=== PATIENT | female | born 1955 | race Caucasian/White ===

== ENCOUNTER 2020-09-28 18:09 | Emergency (ER) | payer MEDICAID, OTHER ==
[2020-09-28] MEDS ORDERED: Sodium Chloride 0.9% 10 ML Syringe FLUSH PRN (18:37)
[2020-09-28] MEDS ORDERED: Sodium Chloride 0.9% 1,000 ML IV SCH (18:45)
--- NOTE | 2020-09-28 19:48 | EDM.PDOC ---
ED HPI GENERAL MEDICAL PROBLEM - General Chief Complaint: General Stated Complaint: DIZZY Time Seen by Provider: 09/28/20 18:10 Source of Information: Reports: Patient History Limitations: Reports: No Limitations - History of Present Illness INITIAL COMMENTS - FREE TEXT/NARRATIVE: Patient presented to the ED because of weakness, dizziness and dyspnea which started @ 1330. There is no N/V/D. Denies having any fever but have chills, no cough/cold symptoms. She was diagnosed with Malignant Lymphoma in [place] sometime in 08/2020. She had several chemotherapy since then and 2 U of PRBC just recently. - Related Data Allergies Allergy/AdvReac Type Severity Reaction Status Date / Time cephalexin Allergy Rash Verified 09/28/20 18:32 Home Meds: Home Meds Acetaminophen/HYDROcodone [[place] 325-5 MG] 1 tab PO Q6HR PRN 09/28/20 [History] Aspirin 81 mg PO DAILY 09/28/20 [History] Escitalopram [Lexapro] 10 mg PO DAILY 09/28/20 [History] Melatonin 5 mg PO BEDTIME 09/28/20 [History] NIFEdipine [Procardia Xl] 90 mg PO DAILY 09/28/20 [History] Omeprazole 40 mg PO DAILY 09/28/20 [History] Ondansetron [Zofran] 8 mg PO TID PRN 09/28/20 [History] Rivaroxaban [Xarelto] 20 mg PO DAILY 09/28/20 [History] Sulfamethoxazole/Trimethoprim [Bactrim Ds Tablet] 1 tab PO ASDIRECTED 09/28/20 [History] allopurinoL [Zyloprim] 300 mg PO DAILY 09/28/20 [History] valACYclovir HCl [Valtrex] 500 mg PO DAILY 09/28/20 [History] Past Medical History Cardiovascular History: Reports: Arrhythmia [employer] AD[employer]ER History: Reports: Psychiatric History: Reports: Anxiety, Depression Hematologic History: Reports: Other (See Below) Other Hematologic History: malignant lymphoma Social & Family History - Family History Family Medical History: No Pertinent Family History - Tobacco Use Tobacco Use Status *Q: Heavy Tobacco User Years of Tobacco use: 49 Packs/Tins Daily: 0.5 - Caffeine Use Caffeine Use: Reports: Coffee - Recreational Drug Use Recreational Drug Use: Yes Drug Use in Last 12 Months: No Recreational Drug Type: Reports: Marijuana/Hashish ED ROS GENERAL - Review of Systems Review Of Systems: See Below Constitutional: Reports: Chills, Malaise, Weakness HEENT: Reports: No Symptoms Respiratory: Reports: No Symptoms Cardiovascular: Reports: No Symptoms Endocrine: Reports: No Symptoms GI/Abdominal: Reports: No Symptoms : Reports: No Symptoms Musculoskeletal: Reports: No Symptoms Skin: Reports: No Symptoms Neurological: Reports: No Symptoms Psychiatric: Reports: No Symptoms Hematologic/Lymphatic: Reports: No Symptoms ED EXAM, GENERAL - Physical Exam Exam: See Below Exam Limited By: No Limitations General Appearance: Alert, No Apparent Distress Ears: Normal External Exam, Normal [place] Nose: Normal Inspection, Normal Mucosa, No Blood Throat/Mouth: Normal Inspection, Normal Lips Head: Atraumatic, Normocephalic Neck: Normal Inspection, Supple, Non-Tender, Full Range of Motion Respiratory/Chest: No Respiratory Distress, Lungs Clear, Normal Breath Sounds, No Accessory Muscle Use, Chest Non-Tender Cardiovascular: Normal Peripheral Pulses, Regular Rate, Rhythm, No Edema, No JVD, No Murmur GI/Abdominal: Normal Bowel Sounds, Soft, Non-Tender, No Organomegaly Back Exam: Normal Inspection, Full Range of Motion Extremities: Normal Inspection, Normal Range of Motion, Non-Tender, No Pedal Edema, Normal Capillary Refill #1 Interpretation EKG Date: 09/28/20 Time: 18:58 Rhythm: NSR Rate (Beats/Min): 75 [place]: Normal QRS: Other (LAFB) ST-T: Normal QT: Normal [place]/PQ Interval: 144 Comparison: NA - No Prior EKG Course - Vital Signs Text/Narrative:: Lab/EKG/CXR result was reviewed and discussed with patient and her son S 1 L bolus Last Recorded V/S: Last Vital Signs Temp 36.8 C 09/28/20 18:10 Pulse 88 09/28/20 18:10 Resp 20 09/28/20 18:10 BP 109/68 09/28/20 18:10 Pulse Ox 97 09/28/20 18:10 - Orders/Labs/Meds Orders: Active Orders 24 hr Category Date Time Status Chest 1V Frontal [CR] Stat Exams 09/28/20 18:37 Taken Saline Lock Insert [OM.PC] Routine Oth 09/28/20 18:37 Ordered EKG 12 Lead [EK] Routine Ther 09/28/20 18:37 Ordered Labs: Laboratory Tests 09/28/20 09/28/20 09/28/20 Range/Units 18:50 18:50 18:50 WBC 3.0 (3.0-10.3) x10-3/uL RBC 2.32 L (3.60-5.20) x10(6)uL Hgb 8.2 L (11.4-15.5) g/dL Hct 23.4 L (34.2-48.2) % MCV 100.9 H (76.7-100.5) fL MCH 35.2 H (23.9-33.9) pg MCHC 34.9 H (31.9-34.8) g/dL RDW 22.8 H (12.3-16.5) % Plt Count 45 L (151-488) x10(3)uL MPV 9.5 (7.1-12.4) fL Neut % (Auto) 75.4 (30.8-76.2) % Lymph % (Auto) 16.8 L (18.4-52.1) % [place] % (Auto) 7.5 (4.4-15.7) % Eos % (Auto) 0.1 L (0.6-8.1) % Baso % (Auto) 0.2 (0.2-1.5) % Neut # (Auto) 2.3 (1.5-6.3) x10-3/uL Lymph # (Auto) 0.5 L (1.0-4.4) x10-3/uL [place] # (Auto) 0.2 L (0.3-1.0) x10-3/uL Eos # (Auto) 0.0 (0.0-0.8) x10-3/uL Baso # (Auto) 0.0 (0.0-0.1) x10-3/uL Sodium 133 L (135-145) mmol/L Potassium 3.8 (3.5-5.3) mmol/L Chloride 96 L (100-110) mmol/L Carbon Dioxide 27 (21-32) mmol/L BUN 18 (7-18) mg/dL Creatinine 0.7 (0.55-1.02) mg/dL Est Cr Clr Drug Dosing 61.27 mL/min Estimated GFR (MDRD) > 60 (>60) BUN/Creatinine Ratio 25.7 H (9-20) Glucose 112 (80-116) mg/dL Calcium 9.4 (8.6-10.2) mg/dL Total Bilirubin 1.1 (0.1-1.3) mg/dL AST 11 (5-25) IU/L ALT 15 (12-36) U/L Alkaline Phosphatase 91 (56-112) IU/L Troponin I 6.9 (4.0-60.3) pg/mL NT-Pro-B Natriuret Pep 222 H (<=125) pg/mL Total Protein 7.7 (6.0-8.0) g/dL Albumin 3.3 (3.2-4.6) g/dL Globulin 4.4 g/dL Albumin/Globulin Ratio 0.8 Meds: Medications Discontinued Medications Generic Name Dose Route Start Last Admin Trade Name Freq PRN Reason Stop Dose Admin Sodium Chloride 1,000 mls @ 999 mls/hr 09/28/20 18:45 09/28/20 18:50 Normal Saline IV 999 mls/hr ASDIRECTED FENG Administration Sodium Chloride 10 ml 09/28/20 18:37 Sodium Chloride 0.9% 10 Ml Syringe FLUSH ASDIRECTED PRN Keep Vein Open Departure - Departure Time of Disposition: 20:30 Disposition: Home, Self-Care 01 Condition: Good Clinical Impression: Anemia, Dehydration, Malignant lymphoma - Discharge Information Instructions: Dehydration, Adult, [id number] Referrals: Ceasar Peterson DO [Primary Care Provider] - Forms: ED Department Discharge Additional Instructions: Please read discharge instructions on dehydration and lymphoma Drink 2-3 liters of water daily to prevent dehydration Follow up as needed Sepsis Event Note (ED) - Evaluation Sepsis Screening Result: No Definite Risk - Focused Exam Vital Signs: Vital Signs Temp Pulse Resp BP Pulse Ox 09/28/20 18:10 36.8 C 88 20 109/68 97 - My Orders Last 24 Hours: My Active Orders 09/28/20 18:37 Chest 1V Frontal [CR] Stat Saline Lock Insert [OM.PC] Routine EKG 12 Lead [EK] Routine - Assessment/Plan Last 24 Hours: My Active Orders 09/28/20 18:37 Chest 1V Frontal [CR] Stat Saline Lock Insert [OM.PC] Routine EKG 12 Lead [EK] Routine
== END 2020-09-28 20:27 | disposition home or self-care (01) ==
LOC: FB.ED 18:09
DX: E86.0 Dehydration (principal); C85.90 Non-Hodgkin lymphoma, unspecified, unspecified site; D64.9 Anemia, unspecified; I44.4 Left anterior fascicular block; Z88.1 Allergy status to other antibiotic agents; Z72.0 Tobacco use; Z79.82 Long term (current) use of aspirin; Z79.01 Long term (current) use of anticoagulants; Z79.899 Other long term (current) drug therapy
CPT/HCPCS: 36415; 71045; 80053; 83880; 84484; 85025; 93005; 99285; J7030

== ENCOUNTER 2020-10-07 17:28 | Observation (INO) | payer MEDICAID, OTHER ==
--- NOTE | 2020-10-07 18:12 | EDM.PDOC ---
ED HPI GENERAL MEDICAL PROBLEM - General Chief Complaint: General Stated Complaint: WEAKNESS,PALE,EYES DIALATED Time Seen by Provider: 10/07/20 17:45 Source of Information: Reports: Patient, Family History Limitations: Reports: No Limitations - History of Present Illness INITIAL COMMENTS - FREE TEXT/NARRATIVE: c/o fatigue x 2d pt thinks she is anemic, last given 2u PRCB 8d ago per pt, had hgb 8.2 here 9d ago (wbc 3.0 and plt 45) dx lymphoma end of July, living in [facility] at the time pt does not know where lymphoma is located ("in my blood") or type of lymphoma ("malignant") has had transfusion 3x 1st cycle chemo end of August in [place], was supposed to go back to [place] 2d for 2nd cycle of chemo but was tired and did not have a way to get there was supposed have CBC drawn today but has spent the entire day in bed and slept through her 9a appointment renting a house in [place] where she is staying, son is with her wearing his work uniform no pain c/o, not eat and drink today SH: current smoker - Related Data Allergies Allergy/AdvReac Type Severity Reaction Status Date / Time cephalexin Allergy Rash Verified 10/07/20 19:49 Home Meds: Home Meds Acetaminophen/HYDROcodone [[place] 325-5 MG] 1 tab PO Q6HR PRN 09/28/20 [History] Aspirin 81 mg PO DAILY 09/28/20 [History] Escitalopram [Lexapro] 10 mg PO DAILY 09/28/20 [History] Melatonin 5 mg PO BEDTIME 09/28/20 [History] NIFEdipine [Procardia Xl] 90 mg PO DAILY 09/28/20 [History] Omeprazole 40 mg PO DAILY 09/28/20 [History] Ondansetron [Zofran] 8 mg PO TID PRN 09/28/20 [History] Rivaroxaban [Xarelto] 20 mg PO DAILY 09/28/20 [History] Sulfamethoxazole/Trimethoprim [Bactrim Ds Tablet] 1 tab PO ASDIRECTED 09/28/20 [History] allopurinoL [Zyloprim] 300 mg PO DAILY 09/28/20 [History] valACYclovir HCl [Valtrex] 500 mg PO DAILY 09/28/20 [History] Past Medical History 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: Psychiatric History: Reports: Anxiety, Depression Hematologic History: Reports: Other (See Below) Other Hematologic History: malignant lymphoma Social & Family History - Family History Family Medical History: No Pertinent Family History - Caffeine Use Caffeine Use: Reports: Coffee ED ROS GENERAL - Review of Systems Review Of Systems: See Below Constitutional: Reports: No Symptoms HEENT: Reports: No Symptoms Respiratory: Reports: No Symptoms Cardiovascular: Reports: No Symptoms Endocrine: Reports: No Symptoms GI/Abdominal: Reports: No Symptoms : Reports: No Symptoms Musculoskeletal: Reports: No Symptoms Skin: Reports: No Symptoms Neurological: Reports: Weakness Psychiatric: Reports: No Symptoms Hematologic/Lymphatic: Reports: No Symptoms Immunologic: Reports: No Symptoms ED EXAM, GENERAL - Physical Exam Exam: See Below Exam Limited By: No Limitations General Appearance: Alert, Other (lying supine on bed, alert, conversant, answers questions readily) Ears: Hearing Grossly Normal Nose: Normal Inspection, Normal Mucosa, No Blood Throat/Mouth: Normal Inspection, Normal Lips, Normal Voice, No Airway Compromise Head: Atraumatic, Normocephalic Neck: Normal Inspection, Supple, Non-Tender, Full Range of Motion. No: Lymphadenopathy (R), Lymphadenopathy (L) Respiratory/Chest: No Respiratory Distress, Lungs Clear, Normal Breath Sounds, Chest Non-Tender Cardiovascular: Regular Rate, Rhythm, No Edema, No Murmur GI/Abdominal: Soft, Non-Tender, No Distention Back Exam: Normal Inspection, Full Range of Motion. No: CVA Tenderness (R), CVA Tenderness (L) Extremities: Normal Inspection, Non-Tender, No Pedal Edema Neurological: Alert, Oriented, CN II-XII Intact, Normal Cognition, No Motor/Sensory Deficits Psychiatric: Normal Affect, Normal Mood Skin Exam: Warm, Dry, Intact, Normal Color, No Rash Lymphatic: No Adenopathy Course - Vital Signs Last Recorded V/S: Last Vital Signs Temp 37.0 C 10/07/20 17:41 Pulse 77 10/07/20 17:41 Resp 16 10/07/20 17:41 BP 91/47 L 10/07/20 17:41 Pulse Ox - Orders/Labs/Meds Orders: Active Orders 24 hr Category Date Time Status RED BLOOD CELLS LP [BBK] Stat Lab 10/07/20 19:18 Ordered TYPE AND SCREEN [BBK] Stat Lab 10/07/20 19:18 Ordered UA W/MICROSCOPIC [URIN] Stat Lab 10/07/20 18:55 Ordered Sodium Chloride 0.9% [Normal Saline] 250 ml Med 10/07/20 19:30 Active IV ASDIRECTED Transfuse RBC [Transfuse Red Blood Cells] [COMM] Stat Oth 10/07/20 19:18 Ordered Medication Orders Allopurinol (Allopurinol 300 Mg Tab) 300 mg PO DAILY FENG Escitalopram Oxalate (Escitalopram 10 Mg Tab) 10 mg PO DAILY FENG Sodium Chloride (Normal Saline) 250 mls @ 100 mls/hr IV ASDIRECTED FENG Magnesium Hydroxide (Magnesium Hydroxide 400 Mg/5 Ml Susp 30 Ml Cup) 30 ml PO Q12H PRN PRN Reason: Constipation Non-Formulary Medication (Melatonin [Melatonin]) 5 mg PO BEDTIME FENG Non-Formulary Medication (Omeprazole [Omeprazole]) 40 mg PO DAILY FENG Trimethoprim/Sulfamethoxazole (Sulfamethoxazole/Trimethoprim 800-160 Mg Tab) 1 tab PO ASDIRECTED FENG Valacyclovir HCl (Valacyclovir 500 Mg Tab) 500 mg PO DAILY FENG Zolpidem Tartrate (Zolpidem 5 Mg Tab) 5 mg PO BEDTIME PRN PRN Reason: Sleep Labs: Laboratory Tests 10/07/20 10/07/20 Range/Units 19:05 19:05 WBC 1.6 L* (3.0-10.3) x10-3/uL RBC 1.26 L (3.60-5.20) x10(6)uL Hgb 4.3 L* D (11.4-15.5) g/dL Hct 12.0 L* D (34.2-48.2) % MCV 95.8 (76.7-100.5) fL MCH 34.2 H (23.9-33.9) pg MCHC 35.6 H (31.9-34.8) g/dL RDW 22.0 H (12.3-16.5) % Plt Count 34 L* (151-488) x10(3)uL MPV 8.5 (7.1-12.4) fL Add Manual Diff Yes Neutrophils % (Manual) 80 (46-82) % Lymphocytes % (Manual) 20 (13-37) % Plt Morphology Comment See note Polychromasia Few Sodium 138 (135-145) mmol/L Potassium 3.6 (3.5-5.3) mmol/L Chloride 99 L (100-110) mmol/L Carbon Dioxide 28 (21-32) mmol/L BUN 13 (7-18) mg/dL Creatinine 0.6 (0.55-1.02) mg/dL Est Cr Clr Drug Dosing 71.48 mL/min Estimated GFR (MDRD) > 60 (>60) BUN/Creatinine Ratio 21.7 H (9-20) Glucose 94 (80-116) mg/dL Calcium 8.9 (8.6-10.2) mg/dL Total Bilirubin 0.7 (0.1-1.3) mg/dL AST 9 D (5-25) IU/L ALT 16 (12-36) U/L Alkaline Phosphatase 79 (56-112) IU/L Total Protein 7.2 (6.0-8.0) g/dL Albumin 3.0 L (3.2-4.6) g/dL Globulin 4.2 g/dL Albumin/Globulin Ratio 0.7 Meds: Medications Generic Name Dose Route Start Last Admin Trade Name Freq PRN Reason Stop Dose Admin Allopurinol 300 mg 10/08/20 09:00 Allopurinol 300 Mg Tab PO DAILY [facility] Escitalopram Oxalate 10 mg 10/08/20 09:00 Escitalopram 10 Mg Tab PO DAILY [facility] Sodium Chloride 250 mls @ 100 mls/hr 10/07/20 19:30 Normal Saline IV ASDIRECTED [facility] Magnesium Hydroxide 30 ml 10/07/20 19:55 Magnesium Hydroxide 400 Mg/5 Ml Susp 30 Ml Cup PO Q12H PRN Constipation Non-Formulary Medication 5 mg 10/07/20 21:00 Melatonin [Melatonin] PO BEDTIME FENG Non-Formulary Medication 40 mg 10/08/20 09:00 Omeprazole [Omeprazole] PO DAILY [facility] Trimethoprim/Sulfamethoxazole 1 tab 10/07/20 20:00 Sulfamethoxazole/Trimethoprim 800-160 Mg Tab PO ASDIRECTED [facility] Valacyclovir HCl 500 mg 10/08/20 09:00 Valacyclovir 500 Mg Tab PO DAILY [facility] Zolpidem Tartrate 5 mg 10/07/20 19:55 Zolpidem 5 Mg Tab PO BEDTIME PRN Sleep - Re-Assessments/Exams Free Text/Narrative Re-Assessment/Exam: 10/07/20 19:24 hgb 4.3, will admit to obs bed and transfuse 2u PRBC, no fever, no clinical evidence of infection Departure - Departure Time of Disposition: 19:23 Disposition: Refer to Observation Condition: Fair Clinical Impression: Pancytopenia, Profound anemia, Lymphoma - Discharge Information *PRESCRIPTION DRUG MONITORING PROGRAM REVIEWED*: Not Applicable *COPY OF PRESCRIPTION DRUG MONITORING REPORT IN PATIENT ANAND: Not Applicable Sepsis Event Note (ED) - Evaluation Sepsis Screening Result: No Definite Risk - Focused Exam Vital Signs: Vital Signs Temp Pulse Resp BP 10/07/20 17:41 37.0 C 77 16 91/47 L - My Orders Last 24 Hours: My Active Orders 10/07/20 18:55 UA W/MICROSCOPIC [URIN] Stat 10/07/20 19:18 RED BLOOD CELLS LP [BBK] Stat TYPE AND SCREEN [BBK] Stat Transfuse RBC [Transfuse Red Blood Cells] [COMM] Stat 10/07/20 19:30 Sodium Chloride 0.9% [Normal Saline] 250 ml IV ASDIRECTED - Assessment/Plan Last 24 Hours: My Active Orders 10/07/20 18:55 UA W/MICROSCOPIC [URIN] Stat 10/07/20 19:18 RED BLOOD CELLS LP [BBK] Stat TYPE AND SCREEN [BBK] Stat Transfuse RBC [Transfuse Red Blood Cells] [COMM] Stat 10/07/20 19:30 Sodium Chloride 0.9% [Normal Saline] 250 ml IV ASDIRECTED
[2020-10-07] MEDS ORDERED: Magnesium Hydroxide 400 MG/5 ML Susp 30 ML Cup PO PRN (19:55)
[2020-10-07] MEDS: Sodium Chloride 0.9% 250 ML IV SCH ×2 (20:45→23:11)
[2020-10-07] MEDS ORDERED: Non-Formulary Medication 1 Each (Melatonin [Melatonin] 5 MG Tablet) PO SCH (21:00)
[2020-10-08] MEDS: Acetaminophen 325 MG Tab PO PRN ×2 (02:43→21:43)
[2020-10-08] MEDS: Zolpidem 5 MG Tab PO PRN ×2 (02:45→21:44)
[2020-10-08] MEDS: Sodium Chloride 0.9% 250 ML IV SCH (03:21)
[2020-10-08] MEDS ORDERED: LORazepam 1 MG Tab PO ONE (04:37)
[2020-10-08] MEDS ORDERED: TRIMETHOPRIM PO SCH ×2 (09:00→21:00)
[2020-10-08] MEDS ORDERED: SULFAMETHOXAZOLE PO SCH ×2 (09:00→21:00)
[2020-10-08] MEDS: Escitalopram 10 MG Tab *PTOM PO SCH (09:58)
[2020-10-08] MEDS: VALACYCLOVIR 500 MG PO SCH (09:59)
[2020-10-08] MEDS: OMEPRAZOLE 20 MG PO SCH (09:59)
[2020-10-08] MEDS: Allopurinol 300 MG Tab *PTOM PO SCH (10:01)
--- NOTE | 2020-10-08 14:16 | PCM.HP.2 ---
H&P History of Present Illness - General Date of Service: 10/08/20 Admit Problem/Dx: Admission Diagnosis/Problem Admission Diagnosis/Problem Anemia Source of Information: Patient, Old Records, Provider - History of Present Illness Initial Comments - Free Text/Narative: Merry presented to [facility] last night for 2 day history of fatigue but denies any shortness of breath or chest pain. She felt she was anemic. She denies any nosebleeds, bleeding gums, blood in urine or stools. She has been b ruising easily. Denies any swollen lymph nodes, fevers, chills, nausea or vomiting. No diarrhea or constipation, or pain. She did not eat or drink today because she was too tired to go downstairs(14 stairs to go down and up). 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 She is due for 2nd cycle of chemo on 10/12 & 10/13. She missed lab appointment yesterday due to fatigue for repeat CBC. She moved here from [place], [place] to be with her son. She turns 65 next Sunday, has paperwork to apply for Medicare but has not been able to do it. Previous transfusions x 3. She sees Dr Morales at [facility]. - Related Data Allergies/Adverse Reactions: Allergies Allergy/AdvReac Type Severity Reaction Status Date / Time cephalexin Allergy Rash Verified 10/07/20 19:49 Home Medications: Home Meds Aspirin 81 mg PO DAILY 09/28/20 [History] Escitalopram [Lexapro] 10 mg PO DAILY 09/28/20 [History] Melatonin 5 mg PO BEDTIME 09/28/20 [History] NIFEdipine [Procardia Xl] 90 mg PO DAILY 09/28/20 [History] Omeprazole 40 mg PO DAILY 09/28/20 [History] Ondansetron [Zofran] 8 mg PO TID PRN 09/28/20 [History] Rivaroxaban [Xarelto] 20 mg PO DAILY 09/28/20 [History] Sulfamethoxazole/Trimethoprim [Bactrim Ds Tablet] 1 tab PO MOWEFR 09/28/20 [Hist ory] allopurinoL [Zyloprim] 300 mg PO DAILY 09/28/20 [History] valACYclovir HCl [Valtrex] 500 mg PO DAILY 09/28/20 [History] Hydrocodone/Acetaminophen [Hydrocodon-Acetaminophn 10-325] 1 tab PO Q6H PRN 10/08/20 [History] Prochlorperazine Maleate [Compazine] 10 mg PO QID PRN 10/08/20 [History] Past Medical History HEENT History: Reports: Other (See Below) Other HEENT History: Reading glasses Cardiovascular History: Reports: Arrhythmia, Blood Clots/VTE/DVT [employer]ING [employer]PER[employer] History: Reports: Psychiatric History: Reports: Anxiety, Depression Endocrine/Metabolic History: Reports: Obesity/BMI 30+ Hematologic History: Reports: Anemia, Blood Transfusion(s), Other (See Below) Other Hematologic History: malignant lymphoma Oncologic (Cancer) History: Reports: Lymphoma - Past Surgical History GI Surgical History: Reports: EGD Female Surgical History: Reports: Section Social & Family History - Family History Family Medical History: No Pertinent Family History - Tobacco Use Tobacco Use Status *Q: Current Every Day Tobacco User Years of Tobacco use: 45 Packs/Tins Daily: 0.5 Second Hand Smoke Exposure: No - Caffeine Use Caffeine Use: Reports: Coffee, Tea - Recreational Drug Use Recreational Drug Use: Yes Drug Use in Last 12 Months: Yes Recreational Drug Type: Reports: Marijuana/Hashish Recreational Drug Use Frequency: Socially H&P Review of Systems - Review of Systems: Review Of Systems: Comprehensive ROS is negative, except as noted in HPI. Exam - Exam Exam: See Below - Vital Signs Vital Signs: Last Vital Signs Temp 98.7 F 10/08/20 13:30 Pulse 70 10/08/20 13:30 Resp 18 10/08/20 13:30 BP 106/55 L 10/08/20 13:30 Pulse Ox 100 10/08/20 13:30 Weight: 162 lb 11.218 oz - Exam General: Alert, Oriented, Cooperative. No: Mild Distress HEENT: PERRLA, Conjunctiva Clear (pale mucosa), EOMI, Hearing Intact, Mucosa Moist & [place] (pale buccal mucosa), Normal Nasal Septum, Posterior Pharynx Clear Neck: Trachea Midline Lungs: Clear to Auscultation, Normal Respiratory Effort Cardiovascular: Regular Rate, Regular Rhythm GI/Abdominal Exam: Normal Bowel Sounds, Soft, Non-Tender, No Distention (Female) Exam: Deferred Rectal (Female) Exam: Deferred Extremities: No Pedal Edema, Pallor Peripheral Pulses: 2+: Radial (L), Radial (R), Posterior Tibial (L), Posterior Tibial (R), Dorsalis Pedis (L), Dorsalis Pedis (R) Skin: Petechia (BUE), Ecchymosis Neurological: Cranial Nerves Intact, Normal Speech, Normal Tone - Patient Data Lab Results Last 24 hrs: Laboratory Results - last 24 hr 10/07/20 10/07/20 10/07/20 Range/Units 18:35 19:05 19:05 WBC 1.6 L* (3.0-10.3) x10-3/uL RBC 1.26 L (3.60-5.20) x10(6)uL Hgb 4.3 L* D (11.4-15.5) g/dL Hct 12.0 L* D (34.2-48.2) % MCV 95.8 (76.7-100.5) fL MCH 34.2 H (23.9-33.9) pg MCHC 35.6 H (31.9-34.8) g/dL RDW 22.0 H (12.3-16.5) % Plt Count 34 L* (151-488) x10(3)uL MPV 8.5 (7.1-12.4) fL Neut % (Auto) (30.8-76.2) % Lymph % (Auto) (18.4-52.1) % [place] % (Auto) (4.4-15.7) % Eos % (Auto) (0.6-8.1) % Baso % (Auto) (0.2-1.5) % Neut # (Auto) (1.5-6.3) x10-3/uL Lymph # (Auto) (1.0-4.4) x10-3/uL [place] # (Auto) (0.3-1.0) x10-3/uL Eos # (Auto) (0.0-0.8) x10-3/uL Baso # (Auto) (0.0-0.1) x10-3/uL Add Manual Diff Yes Neutrophils % (Manual) 80 (46-82) % Lymphocytes % (Manual) 20 (13-37) % Plt Morphology Comment See note Polychromasia Few Sodium 138 (135-145) mmol/L Potassium 3.6 (3.5-5.3) mmol/L Chloride 99 L (100-110) mmol/L Carbon Dioxide 28 (21-32) mmol/L BUN 13 (7-18) mg/dL Creatinine 0.6 (0.55-1.02) mg/dL Est Cr Clr Drug Dosing 71.48 mL/min Estimated GFR (MDRD) > 60 (>60) BUN/Creatinine Ratio 21.7 H (9-20) Glucose 94 (80-116) mg/dL Calcium 8.9 (8.6-10.2) mg/dL Total Bilirubin 0.7 (0.1-1.3) mg/dL AST 9 D (5-25) IU/L ALT 16 (12-36) U/L Alkaline Phosphatase 79 (56-112) IU/L Total Protein 7.2 (6.0-8.0) g/dL Albumin 3.0 L (3.2-4.6) g/dL Globulin 4.2 g/dL Albumin/Globulin Ratio 0.7 Urine Color (YELLOW) Urine Appearance (CLEAR) Urine pH (5.0-6.5) Ur Specific [place] (1.010-1.025) Urine Protein (NEGATIVE) mg/dL Urine Glucose (UA) (NORMAL) mg/dL Urine Ketones (NEGATIVE) mg/dL Urine Occult Blood (NEGATIVE) Urine Nitrite (NEGATIVE) Urine Bilirubin (NEGATIVE) Urine Urobilinogen (NEGATIVE) mg/dL Ur Leukocyte Esterase (NEGATIVE) Urine RBC (0-5) Urine WBC (0-5) Ur Squamous Epith Cells (NS,R,O) Urine Bacteria (NS) Urine Mucus (NS) Blood Type AB POSITIVE Gel Antibody Screen Negative Crossmatch See Detail 10/08/20 10/08/20 Range/Units 03:55 06:30 WBC 2.2 L (3.0-10.3) x10-3/uL RBC 2.54 L (3.60-5.20) x10(6)uL Hgb 8.2 L D (11.4-15.5) g/dL Hct 23.1 L D (34.2-48.2) % MCV 90.8 (76.7-100.5) fL MCH 32.2 (23.9-33.9) pg MCHC 35.5 H (31.9-34.8) g/dL RDW 17.0 H (12.3-16.5) % Plt Count 31 L* (151-488) x10(3)uL MPV 8.6 (7.1-12.4) fL Neut % (Auto) 70.8 (30.8-76.2) % Lymph % (Auto) 24.2 (18.4-52.1) % [place] % (Auto) 4.7 (4.4-15.7) % Eos % (Auto) 0.0 L (0.6-8.1) % Baso % (Auto) 0.3 (0.2-1.5) % Neut # (Auto) 1.6 (1.5-6.3) x10-3/uL Lymph # (Auto) 0.5 L (1.0-4.4) x10-3/uL [place] # (Auto) 0.1 L (0.3-1.0) x10-3/uL Eos # (Auto) 0.0 (0.0-0.8) x10-3/uL Baso # (Auto) 0.0 (0.0-0.1) x10-3/uL Add Manual Diff Neutrophils % (Manual) (46-82) % Lymphocytes % (Manual) (13-37) % Plt Morphology Comment Polychromasia Sodium (135-145) mmol/L Potassium (3.5-5.3) mmol/L Chloride (100-110) mmol/L Carbon Dioxide (21-32) mmol/L BUN (7-18) mg/dL Creatinine (0.55-1.02) mg/dL Est Cr Clr Drug Dosing mL/min Estimated GFR (MDRD) (>60) BUN/Creatinine Ratio (9-20) Glucose (80-116) mg/dL Calcium (8.6-10.2) mg/dL Total Bilirubin (0.1-1.3) mg/dL AST (5-25) IU/L ALT (12-36) U/L Alkaline Phosphatase (56-112) IU/L Total Protein (6.0-8.0) g/dL Albumin (3.2-4.6) g/dL Globulin g/dL Albumin/Globulin Ratio Urine Color Yellow (YELLOW) Urine Appearance Clear (CLEAR) Urine pH 6.5 (5.0-6.5) Ur Specific [place] 1.015 (1.010-1.025) Urine Protein Negative (NEGATIVE) mg/dL Urine Glucose (UA) Normal (NORMAL) mg/dL Urine Ketones Negative (NEGATIVE) mg/dL Urine Occult Blood Negative (NEGATIVE) Urine Nitrite Negative (NEGATIVE) Urine Bilirubin Negative (NEGATIVE) Urine Urobilinogen 1 H (NEGATIVE) mg/dL Ur Leukocyte Esterase Negative (NEGATIVE) Urine RBC 0-5 (0-5) Urine WBC 0-5 (0-5) Ur Squamous Epith Cells Few H (NS,R,O) Urine Bacteria Few H (NS) Urine Mucus Few H (NS) Blood Type Gel Antibody Screen Crossmatch Result Diagrams: 10/08/20 06:30 10/07/20 19:05 Sepsis Event Note - Evaluation Sepsis Screening Result: No Definite Risk - Focused Exam Vital Signs: Vital Signs Temp Temp Temp Pulse Resp BP Pulse Ox 10/08/20 13:30 98.7 F 70 18 106/55 L 100 10/08/20 08:30 97.4 F 84 16 128/42 L 98 10/08/20 06:20 97.4 F 84 15 128/42 L 98 10/08/20 05:20 97.1 F 76 16 138/52 L 99 10/08/20 04:12 97.6 F 84 16 134/72 97 10/08/20 03:18 97.8 F 84 18 134/72 99 10/08/20 02:47 16 10/08/20 02:32 97.4 F 78 16 139/67 98 10/08/20 02:17 97.6 F 84 18 138/72 97 *Q Meaningful Use (ADM) - VTE *Q VTE Mechanical Contraindications *Q: At Risk for Falls VTE Pharmacological Contraindications *Q: Thrombocytopenia - VTE Risk Assess *Q Each Risk Factor Represents 1 Point: None Total Score 1 Point Risk Factors: 0 Each Risk Factor Represents 2 Points: Age 60 - 74 Years, Malignancy (present or previous) Total Score 2 Point Risk Factors: 4 Each Risk Factor Represents 3 Points: None Total Score 3 Point Risk Factors: 0 Each Risk Factor Represents 5 Points: None Total Score 5 Point Risk Factors: 0 Venous Thromboembolism Risk Factor Score *Q: 4 - Problem List (1) Malignant lymphoplasmacytic lymphoma SNOMED Code(s): 317246930 ICD Code: C83.00 - SMALL CELL B-CELL LYMPHOMA, UNSPECIFIED SITE Status: Acute Current Visit: Yes (2) Anemia SNOMED Code(s): 861652117 ICD Code: D64.9 - ANEMIA, UNSPECIFIED Status: Acute Current Visit: Yes (3) Pancytopenia SNOMED Code(s): 582572624 ICD Code: D61.818 - OTHER PANCYTOPENIA Status: Acute Current Visit: Yes (4) Dehydration SNOMED Code(s): 94386034 ICD Code: E86.0 - DEHYDRATION Status: Acute Current Visit: No Problem List Initiated/Reviewed/Updated: Yes Orders Last 24hrs: Active Orders 24 hr Category Date Time Status Admission Status [Patient Status] [ADT] Routine ADT 10/07/20 19:22 Active Oxygen Therapy [RC] PRN Care 10/07/20 19:55 Active Up With Assistance [RC] ASDIRECTED Care 10/07/20 19:55 Active Vital Signs [RC] 00,04,08,12,16,20 Care 10/07/20 19:55 Active Regular Diet [DIET] Diet 10/08/20 Breakfast Active Acetaminophen [TylenoL] Med 10/08/20 02:23 Active 650 mg PO Q4H PRN Escitalopram [Lexapro] Med 10/08/20 09:00 Active 10 mg PO DAILY Magnesium Hydroxide [Milk of Magnesia] Med 10/07/20 19:55 Active 30 ml PO Q12H PRN Omeprazole [Omeprazole] Med 10/08/20 09:00 Active 40 mg PO DAILY Sodium Chloride 0.9% [Normal Saline] 250 ml Med 10/07/20 19:30 Active IV ASDIRECTED Sulfamethoxazole/Trimethoprim [Septra DS] Med 10/08/20 09:00 Active 1 tab PO MoWeFr@0900 Zolpidem [Ambien] Med 10/07/20 19:55 Active 5 mg PO BEDTIME PRN allopurinoL [Zyloprim] Med 10/08/20 09:00 Active 300 mg PO DAILY valACYclovir [Valtrex] Med 10/08/20 09:00 Active 500 mg PO DAILY Transfuse RBC [Transfuse Red Blood Cells] [COMM] Stat Oth 10/07/20 19:18 Ordered Resuscitation Status Routine Resus Stat 10/07/20 19:55 Ordered Medication Orders Acetaminophen (Acetaminophen 325 Mg Tab) 650 mg PO Q4H PRN PRN Reason: Pain (mild 1-3) Last Admin: 10/08/20 02:43 Dose: 650 mg Documented by: ARANZA Allopurinol (Allopurinol 300 Mg Tab *Ptom*) 300 mg PO DAILY [facility] Last Admin: 10/08/20 10:01 Dose: 300 mg Documented by: FRAN Escitalopram Oxalate (Escitalopram 10 Mg Tab *Ptom*) 10 mg PO DAILY [facility] Last Admin: 10/08/20 09:58 Dose: 10 mg Documented by: FRAN Sodium Chloride (Normal Saline) 250 mls @ 100 mls/hr IV ASDIRECTED [facility] Last Admin: 10/08/20 03:21 Dose: 100 mls/hr Documented by: Admin: 10/07/20 23:11 Dose: 100 mls/hr Documented by: Admin: 10/07/20 20:45 Dose: 100 mls/hr Documented by: ASAF Magnesium Hydroxide (Magnesium Hydroxide 400 Mg/5 Ml Susp 30 Ml Cup) 30 ml PO Q12H PRN PRN Reason: Constipation Omeprazole [ Omeprazole] 20 Mg Tablet.Dr *Ptom* 40 mg PO DAILY [facility] Last Admin: 10/08/20 09:59 Dose: 40 mg Documented by: FRAN Trimethoprim/Sulfamethoxazole (Sulfamethoxazole/Trimethoprim 800-160 Mg Tab *Ptom*) 1 tab PO MoWeFr@0900 [facility] Last Admin: 10/08/20 09:59 Dose: 1 tab Documented by: FRAN Valacyclovir HCl (Valacyclovir 500 Mg Tab *Ptom*) 500 mg PO DAILY [facility] Last Admin: 10/08/20 09:59 Dose: 500 mg Documented by: FRAN Zolpidem Tartrate (Zolpidem 5 Mg Tab) 5 mg PO BEDTIME PRN PRN Reason: Sleep Last Admin: 10/08/20 02:45 Dose: 5 mg Documented by: ARANZA Assessment/Plan Comment:: 1. Admit for observation for blood transfusion for significant anemia, pancytopenia, malignant lymphoplasmacytic lymphoma. 2. Anemia: Hgb up to 8.2 today. Received 3 units of PRBCs overnight. No reactions. 3. Dehydration: Resolved, Cr 0.6. 4. Pancytopenia: WBC improved to 2.2, platelets stable at 31. 5. Malignant lymphoplasmacytic lymphoma: continue Allopurinol, Bactrim & Valtrex. Xarelto was held for transfusions. Called [facility] and spoke with nurse with Dr Morales's office. 6. Diet: Regular. 7. Activity: Up with assistance. 8. CODE STATUS: FULL. 9. Discharge: - Mortality Measure Prognosis:: Poor
[2020-10-09] MEDS: OMEPRAZOLE 20 MG PO SCH ×2 (06:51→08:55)
[2020-10-09] MEDS ORDERED: Prochlorperazine 10 MG Tab PO PRN (08:04)
[2020-10-09] MEDS ORDERED: Ondansetron 8 MG Tab.DIS PO PRN (08:05)
[2020-10-09] MEDS ORDERED: Dexamethasone 4 MG/ML SDV IVPUSH ONE (08:06)
[2020-10-09] MEDS ORDERED: ONDANSETRON 8 MG PO PRN (08:19)
[2020-10-09] MEDS ORDERED: PROCHLORPERAZINE 10 MG PO PRN (08:20)
[2020-10-09] MEDS ORDERED: Sodium Chloride 0.9% 250 ML IV SCH (08:45)
[2020-10-09] MEDS: Allopurinol 300 MG Tab *PTOM PO SCH (08:55)
[2020-10-09] MEDS: VALACYCLOVIR 500 MG PO SCH (08:56)
[2020-10-09] MEDS: Escitalopram 10 MG Tab *PTOM PO SCH (08:56)
[2020-10-09] MEDS ORDERED: Glycerin Adult 2 GM Supp RECTAL PRN (09:05)
[2020-10-09] MEDS ORDERED: Bisacodyl 5 MG Tab PO PRN (09:05)
[2020-10-09] MEDS: Acetaminophen 325 MG Tab PO PRN (09:08)
[2020-10-09] MEDS ORDERED: Polyethylene Glycol 3350 Powder 17 GM Packet PO SCH (09:30)
[2020-10-09] MEDS ORDERED: Ketorolac 30 MG/ML SDV IVPUSH PRN (11:16)
[2020-10-09] MEDS ORDERED: Furosemide 40 MG/4 ML VIAL IVPUSH ONE (11:17)
[2020-10-09] MEDS ORDERED: LORazepam 0.5 MG Tab PO PRN (12:50)
--- NOTE | 2020-10-09 16:40 | PCM.DCSUM1 ---
Discharge Summary - Hospital Course HPI Initial Comments: Merry presented to [place] ER last night for 2 day history of fatigue but denies any shortness of breath or chest pain. She felt she was anemic. She denies any nosebleeds, bleeding gums, blood in urine or stools. She has been bruising easily. Denies any swollen lymph nodes, fevers, chills, nausea or vomiting. No diarrhea or constipation, or pain. She did not eat or drink today because she was too tired to go downstairs(14 stairs to go down and up). 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 She is due for 2nd cycle of chemo on 10/12 & 10/13. She missed lab appointment yesterday due to fatigue for repeat CBC. She moved here from [place], [place] to be with her son. She turns 65 next Sunday, has paperwork to apply for Medicare but has not been able to do it. Previous transfusions x 3. She sees Dr Morales at [facility]. Diagnosis: Stroke: No - Discharge Data Discharge Date: 10/09/20 Discharge Disposition: Home, Self-Care 01 Condition: Good - Referral to Home Health Primary Care Physician: Ceasar Peterson, DO - Discharge Diagnosis/Problem(s) (1) Malignant lymphoplasmacytic lymphoma SNOMED Code(s): 433849440 ICD Code: C83.00 - SMALL CELL B-CELL LYMPHOMA, UNSPECIFIED SITE Status: Acute Current Visit: Yes (2) Anemia SNOMED Code(s): 931436315 ICD Code: D64.9 - ANEMIA, UNSPECIFIED Status: Acute Current Visit: Yes (3) Pancytopenia SNOMED Code(s): 744431189 ICD Code: D61.818 - OTHER PANCYTOPENIA Status: Acute Current Visit: Yes (4) Dehydration SNOMED Code(s): 33559678 ICD Code: E86.0 - DEHYDRATION Status: Acute Current Visit: No - Patient Summary/Data Hospital Course: Merry was admitted for observation for blood transfusion, she was found to have WBC 1.6, Hgb 4.2, Plts 34 in ER, received 1 unit in ER then 2 more units overnight. She did not have any reactions. She did have a dose of Ativan around 4 am and slept most of the morning. She was able to eat and keep down lunch and dinner. Spoke with Dr Morales's office and late Sunday heard back and they did not have any additional recommendations. Her Hgb 10/08 was 8.2, Plts 31, WBC 2.2. Ke pt overnight to recheck her labs; WBC 1.3, Hgb 7.9, Plts 28 today. Gave Dexamethasone 4 mg IV x 1 for drop in platelets. She was having more fatigue this morning, shortness of breath with exertion so transfused 1 units of PRBCs. She did have elevation of her blood pressure this morning, 175/78, given Lasix 40 mg IV, Ativan 0.5 mg po x 1, her blood pressure came down to 137/80. Transfusion started once came down, tolerating her 4th unit well. Her son will be able to pick her up after work tonight. She has been tolerating diet since given Compazine & Zofran this morning. She was having trouble swallowing Bactrim yesterday so talked with pharmacy and they split her tablets in half and split dose to twice a day MWF, she tolerated this better. - Patient Instructions Diet: Usual Diet as Tolerated Activity: As Tolerated Driving: Do Not Drive Showering/Bathing: May Shower Notify Provider of: Fever (increased fatigue), Increased Pain, Swelling and Redness, Nausea and/or Vomiting Other/Special Instructions: Follow up with Dr Morales on SundayOctober 12 as previously scheduled. - Discharge Plan *PRESCRIPTION DRUG MONITORING PROGRAM REVIEWED*: Not Applicable *COPY OF PRESCRIPTION DRUG MONITORING REPORT IN PATIENT ANAND: Not Applicable Home Medications: Home Meds Aspirin 81 mg PO DAILY 09/28/20 [History] Escitalopram [Lexapro] 10 mg PO DAILY 09/28/20 [History] Melatonin 5 mg PO BEDTIME 09/28/20 [History] NIFEdipine [Procardia Xl] 90 mg PO DAILY 09/28/20 [History] Omeprazole 40 mg PO DAILY 09/28/20 [History] Ondansetron [Zofran] 8 mg PO TID PRN 09/28/20 [History] Rivaroxaban [Xarelto] 20 mg PO DAILY 09/28/20 [History] allopurinoL [Zyloprim] 300 mg PO DAILY 09/28/20 [History] valACYclovir HCl [Valtrex] 500 mg PO DAILY 09/28/20 [History] Hydrocodone/Acetaminophen [Hydrocodon-Acetaminophn 10-325] 1 tab PO Q6H PRN 10/08/20 [History] Prochlorperazine Maleate [Compazine] 10 mg PO QID PRN 10/08/20 [History] Sulfamethoxazole/Trimethoprim [Septra DS] 0.5 tab PO MoWeFr@0900 tablet 10/09/20 [Rx] Sulfamethoxazole/Trimethoprim [Septra DS] 0.5 tab PO MoWeFr@2100 tablet 10/09/20 [Rx] polyethylene glycoL 3350 [MiraLAX] 17 gm PO DAILY packet 10/09/20 [Rx] Oxygen Therapy Mode: Room Air Forms: ED Department Discharge Referrals: Ceasar Peterson DO [Primary Care Provider] - Madison Morales MD [Ordering Only Provider] - - Discharge Summary/Plan Comment DC Time >30 min.: No - General Info Date of Service: 10/09/20 Subjective Update: She felt fine when she first got up this morning at 6 then about 715 felt fatigued, nauseous. Having some anxiety. Feels like she did when she came in. Denies lightheadedness, some shortness of breath with activity. - Patient Data Vitals - Most Recent: Last Vital Signs Temp 97.6 F 10/09/20 16:00 Pulse 82 10/09/20 16:00 Resp 16 10/09/20 16:00 BP 137/65 10/09/20 16:00 Pulse Ox 98 10/09/20 16:00 Weight - Most Recent: 162 lb 11.218 oz I&O - Last 24 hours: Intake & Output 10/09/20 10/09/20 10/09/20 06:59 14:59 22:59 Intake Total 55 Balance 55 Lab Results - Last 24 hrs: Laboratory Results - last 24 hr 10/07/20 10/09/20 Range/Units 18:35 06:20 WBC 1.3 L* (3.0-10.3) x10-3/uL RBC 2.45 L (3.60-5.20) x10(6)uL Hgb 7.9 L (11.4-15.5) g/dL Hct 22.2 L (34.2-48.2) % MCV 90.3 (76.7-100.5) fL MCH 32.1 (23.9-33.9) pg MCHC 35.5 H (31.9-34.8) g/dL RDW 16.1 (12.3-16.5) % Plt Count 28 L* (151-488) x10(3)uL MPV 8.7 (7.1-12.4) fL Add Manual Diff Yes Neutrophils % (Manual) 64 (46-82) % Lymphocytes % (Manual) 32 (13-37) % Monocytes % (Manual) 4 (4-12) % Blood Type AB POSITIVE Gel Antibody Screen Negative Crossmatch See Detail Med Orders - Current: Current Medications Acetaminophen (Acetaminophen 325 Mg Tab) 650 mg PO Q4H PRN PRN Reason: Pain (mild 1-3) Last Admin: 10/09/20 09:08 Dose: 650 mg Documented by: Allopurinol (Allopurinol 300 Mg Tab *Ptom*) 300 mg PO DAILY [facility] Last Admin: 10/09/20 08:55 Dose: 300 mg Documented by: Bisacodyl (Bisacodyl 5 Mg Tab) 5 mg PO DAILY PRN PRN Reason: Constipation Last Admin: 10/09/20 09:53 Dose: 5 mg Documented by: Escitalopram Oxalate (Escitalopram 10 Mg Tab *Ptom*) 10 mg PO DAILY [facility] Last Admin: 10/09/20 08:56 Dose: 10 mg Documented by: Glycerin (Glycerin Adult 2 Gm Supp) 1 supp RECTAL DAILY PRN PRN Reason: Constipation Sodium Chloride (Normal Saline) 250 mls @ 100 mls/hr IV ASDIRECTED [facility] Last Admin: 10/09/20 14:52 Dose: 100 mls/hr Documented by: Ketorolac Tromethamine (Ketorolac 30 Mg/Ml Sdv) 30 mg IVPUSH Q6H PRN PRN Reason: Pain (moderate 4-6) Stop: 10/14/20 11:16 Last Admin: 10/09/20 11:26 Dose: 30 mg Documented by: Lorazepam (Lorazepam 0.5 Mg Tab) 0.5 mg PO Q4H PRN PRN Reason: Anxiety Last Admin: 10/09/20 13:01 Dose: 0.5 mg Documented by: Magnesium Hydroxide (Magnesium Hydroxide 400 Mg/5 Ml Susp 30 Ml Cup) 30 ml PO Q12H PRN PRN Reason: Constipation Omeprazole [ Omeprazole] 20 Mg Tablet.Dr *Ptom* 40 mg PO DAILY [facility] Last Admin: 10/09/20 08:55 Dose: Not Given Documented by: Ondansetron HCl (Ondansetron 8 Mg Tab.DisOwn Med) 8 mg PO TID PRN PRN Reason: Nausea/Vomiting Last Admin: 10/09/20 11:00 Dose: 8 mg Documented by: Polyethylene Glycol (Polyethylene Glycol 3350 Powder 17 Gm Packet) 17 gm PO DAILY [facility] Last Admin: 10/09/20 09:53 Dose: 17 gm Documented by: Prochlorperazine Maleate (Prochlorperazine 10 Mg TabOwn Med) 10 mg PO QID PRN PRN Reason: Nausea Last Admin: 10/09/20 08:24 Dose: 10 mg Documented by: Trimethoprim/Sulfamethoxazole (Sulfamethoxazole/Trimethoprim 800-160 Mg Tab *Ptom*) 0.5 tab PO MoWeFr@0900 [facility] Trimethoprim/Sulfamethoxazole (Sulfamethoxazole/Trimethoprim 800-160 Mg Tab *Ptom*) 0.5 tab PO MoWeFr@2100 [facility] Last Admin: 10/08/20 21:45 Dose: 0.5 tab Documented by: Valacyclovir HCl (Valacyclovir 500 Mg Tab *Ptom*) 500 mg PO DAILY [facility] Last Admin: 10/09/20 08:56 Dose: 500 mg Documented by: Zolpidem Tartrate (Zolpidem 5 Mg Tab) 5 mg PO BEDTIME PRN PRN Reason: Sleep Last Admin: 10/08/20 21:44 Dose: 5 mg Documented by: Discontinued Medications Dexamethasone (Dexamethasone 4 Mg/Ml Sdv) 4 mg IVPUSH ONETIME ONE Stop: 10/09/20 08:07 Last Admin: 10/09/20 08:53 Dose: 4 mg Documented by: Furosemide (Furosemide 40 Mg/4 Ml Vial) 40 mg IVPUSH NOW ONE Stop: 10/09/20 11:18 Last Admin: 10/09/20 11:26 Dose: 40 mg Documented by: Sodium Chloride (Normal Saline) 250 mls @ 100 mls/hr IV ASDIRECTED [facility] Last Admin: 10/08/20 03:21 Dose: 100 mls/hr Documented by: Lorazepam (Lorazepam 1 Mg Tab) 1 mg PO ONETIME ONE Stop: 10/08/20 04:38 Last Admin: 10/08/20 04:45 Dose: 1 mg Documented by: Non-Formulary Medication (Melatonin [Melatonin]) 5 mg PO BEDTIME [facility] Last Admin: 10/08/20 13:16 Dose: Not Given Documented by: Ondansetron HCl (Ondansetron 8 Mg Tab.Dis) 8 mg PO TID PRN PRN Reason: Nausea/Vomiting Prochlorperazine Maleate (Prochlorperazine 10 Mg Tab) 10 mg PO QID PRN PRN Reason: Nausea Trimethoprim/Sulfamethoxazole (Sulfamethoxazole/Trimethoprim 800-160 Mg Tab *Ptom*) 1 tab PO MoWeFr@0900 [facility] Last Admin: 10/08/20 09:59 Dose: 1 tab Documented by: - Exam General: Reports: Alert, Oriented, Cooperative, No Acute Distress HEENT: Denies: Mucous Membr. Moist/[place] (pale) Lungs: Reports: Clear to Auscultation, Normal Respiratory Effort Cardiovascular: Reports: Regular Rate, Regular Rhythm GI/Abdominal Exam: Normal Bowel Sounds, Soft, Non-Tender, No Distention Extremities: Pallor *Q Meaningful Use (DIS) - VTE *Q VTE Mechanical Contraindications *Q: At Risk for Falls VTE Pharmacological Contraindications *Q: Thrombocytopenia
[2020-10-11] MEDS ORDERED: TRIMETHOPRIM PO SCH (09:00)
[2020-10-11] MEDS ORDERED: SULFAMETHOXAZOLE PO SCH (09:00)
== END 2020-10-09 19:10 | disposition home or self-care (01) ==
LOC: FB.ED 17:28 → FB.MS 19:22
PROVIDERS: ADMIT Emergency Medicine; ATTEND Family Medicine
DX: D61.818 Other pancytopenia (principal); C83.00 Small cell B-cell lymphoma, unspecified site; D63.8 Anemia in other chronic diseases classified elsewhere; E86.0 Dehydration; E66.9 Obesity, unspecified; F17.210 Nicotine dependence, cigarettes, uncomplicated; Z79.82 Long term (current) use of aspirin; Z79.899 Other long term (current) drug therapy; Z88.1 Allergy status to other antibiotic agents
CPT/HCPCS: 36415; 36430; 80053; 81001; 85025; 86850; 86900; 86901; 86920; 86922; 96374; 96375; 99284; A9270; G0378; J1100; J1885; J1940; J7050; P9016; Q0164

== ENCOUNTER 2020-10-19 12:58 | Observation (INO) | payer SELFPAY ==
[2020-10-19] MEDS ORDERED: Sodium Chloride 0.9% 10 ML SDV IV ONE (13:15)
[2020-10-19] MEDS: Sodium Chloride 0.9% 10 ML Syringe FLUSH PRN (13:22)
[2020-10-19] MEDS ORDERED: Sodium Chloride 0.9% 1,000 ML IV SCH (13:30)
[2020-10-19] MEDS ORDERED: Morphine 2 MG/ML SYRINGE IVPUSH STA (13:45)
[2020-10-19] MEDS ORDERED: Iopamidol 755 Mg/ML 75 ML Bottle IV ONE (14:21)
[2020-10-19] MEDS ORDERED: Ondansetron 4 MG/2 ML SDV IVPUSH STA (14:30)
[2020-10-19] MEDS ORDERED: Potassium Chloride 20 MEQ Tab.ER PO STA (14:47)
[2020-10-19] MEDS ORDERED: Ondansetron 4 MG/2 ML SDV IV PRN (16:30)
[2020-10-19] MEDS ORDERED: Enoxaparin 40 MG/0.4 ML Syringe SUBCUT SCH (16:30)
[2020-10-19] MEDS ORDERED: Acetaminophen/HYDROcodone 325-5 MG Tab PO PRN (16:30)
[2020-10-19] MEDS ORDERED: Prochlorperazine 10 MG Tab PO PRN (16:46)
--- NOTE | 2020-10-19 17:38 | EDM.PDOC ---
ED HPI GENERAL MEDICAL PROBLEM - General Chief Complaint: Abdominal Pain Time Seen by Provider: 10/19/20 13:00 Source of Information: Reports: Patient History Limitations: Reports: No Limitations - History of Present Illness INITIAL COMMENTS - FREE TEXT/NARRATIVE: Patient presented to the ED because of abdominal pain which started today. The pain is sharp,6/10, over the epigastric area and LUQ. She has a history of lymphoma and undergoes chemo at [facility].There is no fever, chills, cough or cold symptoms. There is no melanotic stools,hematochezia or hematemesis. Epigastric Pain Score (Numeric/FACES): 4 Lower Back Pain Score (Numeric/FACES): 3 - Related Data Allergies Allergy/AdvReac Type Severity Reaction Status Date / Time cephalexin Allergy Rash Verified 10/19/20 18:11 Home Meds: Home Meds Escitalopram [Lexapro] 10 mg PO DAILY 09/28/20 [History] Melatonin 5 mg PO BEDTIME PRN 09/28/20 [History] Omeprazole 40 mg PO DAILY 09/28/20 [History] Rivaroxaban [Xarelto] 20 mg PO DAILY 09/28/20 [History] polyethylene glycoL 3350 [MiraLAX] 17 gm PO DAILY packet 10/09/20 [Rx] Past Medical History HEENT History: Reports: Other (See Below) Other HEENT History: Reading glasses Cardiovascular History: Reports: Arrhythmia, Blood Clots/VTE/DVT BUFFER INFLATED PAD History: Reports: Psychiatric History: Reports: Anxiety, Depression Endocrine/Metabolic History: Reports: Obesity/BMI 30+ Hematologic History: Reports: Anemia, Blood Transfusion(s), Other (See Below) Other Hematologic History: malignant lymphoma Oncologic (Cancer) History: Reports: Lymphoma - Past Surgical History GI Surgical History: Reports: EGD Female Surgical History: Reports: Section Social & Family History - Family History Family Medical History: No Pertinent Family History - Tobacco Use Tobacco Use Status *Q: Current Every Day Tobacco User Years of Tobacco use: 45 Packs/Tins Daily: 0.5 - Caffeine Use Caffeine Use: Reports: Coffee - Recreational Drug Use Recreational Drug Use: No ED ROS GENERAL - Review of Systems Review Of Systems: See Below Constitutional: Reports: No Symptoms, Weakness Respiratory: Reports: No Symptoms Cardiovascular: Reports: No Symptoms Endocrine: Reports: No Symptoms GI/Abdominal: Reports: Abdominal Pain : Reports: No Symptoms Musculoskeletal: Reports: No Symptoms Skin: Reports: No Symptoms Neurological: Reports: No Symptoms ED EXAM, GI/ABD - Physical Exam Exam: See Below Exam Limited By: No Limitations General Appearance: Alert, No Apparent Distress Ears: Normal External Exam, Normal Canal, Hearing Grossly Normal Nose: Normal Inspection, Normal Mucosa, No Blood Throat/Mouth: Normal Inspection, Normal Lips, Normal Teeth, Normal Gums Head: Atraumatic, Normocephalic Neck: Normal Inspection, Supple, Non-Tender, Full Range of Motion Respiratory/Chest: No Respiratory Distress, Lungs Clear, Normal Breath Sounds, No Accessory Muscle Use, Chest Non-Tender Cardiovascular: Normal Peripheral Pulses, Regular Rate, Rhythm, No Edema, No Gallop, No JVD, No Murmur, No Rub GI/Abdominal Exam: Normal Bowel Sounds, Soft, No Organomegaly, No Distention, Other (epigastric tenderness) Back Exam: Normal Inspection, Full Range of Motion Extremities: Normal Inspection, Normal Range of Motion, Non-Tender Course - Vital Signs Text/Narrative:: Lab/Ct abd/pelvis result was reviewed and discussed with patient NS 1 L bolus Zofran 4 mg IV x1 Morphine 2 mg IV x1 Case was discussed with Dr Bond(Oncologist at [facility]). He want the patient to be transfused 3 U PRBC, hold on the aspirin and xarelto and cover her with Lovenox 40 mg SC Q 24 even though he is aware that her platelet count is 33K. He said patient has a history of DVT/PE and is high risk for developing another one plus she is not actively bleeding. If there is any question with [facility]'s care Dr Bond can be reach anytime at his cp: [phone]. Last Recorded V/S: Last Vital Signs Temp 36.8 C 10/20/20 09:14 Pulse 68 10/20/20 09:14 Resp 19 10/20/20 09:14 BP 173/77 H 10/20/20 09:14 Pulse Ox 96 10/20/20 09:14 - Orders/Labs/Meds Labs: Laboratory Tests 10/19/20 10/19/20 10/19/20 Range/Units 13:55 13:55 13:55 WBC 1.0 L* (3.0-10.3) x10-3/uL RBC 1.74 L (3.60-5.20) x10(6)uL Hgb 5.7 L* (11.4-15.5) g/dL Hct 15.8 L* (34.2-48.2) % MCV 91.0 (76.7-100.5) fL MCH 32.6 (23.9-33.9) pg MCHC 35.8 H (31.9-34.8) g/dL RDW 15.6 (12.3-16.5) % Plt Count 33 L* (151-488) x10(3)uL MPV 7.9 (7.1-12.4) fL Add Manual Diff Yes Neutrophils % (Manual) 56 (46-82) % Lymphocytes % (Manual) 43 H (13-37) % Monocytes % (Manual) 1 L (4-12) % Anisocytosis Few Sodium 138 (135-145) mmol/L Potassium 3.4 L (3.5-5.3) mmol/L Chloride 103 (100-110) mmol/L Carbon Dioxide 25 (21-32) mmol/L BUN 14 (7-18) mg/dL Creatinine 0.6 (0.55-1.02) mg/dL Est Cr Clr Drug Dosing 70.54 mL/min Estimated GFR (MDRD) > 60 (>60) BUN/Creatinine Ratio 23.3 H (9-20) Glucose 98 (80-116) mg/dL Lactic Acid (0.4-2.0) mmol/L Calcium 8.6 (8.6-10.2) mg/dL Total Bilirubin 0.9 (0.1-1.3) mg/dL AST 10 D (5-25) IU/L ALT 15 (12-36) U/L Alkaline Phosphatase 74 (56-112) IU/L Total Protein 6.9 (6.0-8.0) g/dL Albumin 2.8 L (3.2-4.6) g/dL Globulin 4.1 g/dL Albumin/Globulin Ratio 0.7 Amylase 62 (25-115) U/L Lipase 77 (73-393) U/L Urine Color (YELLOW) Urine Appearance (CLEAR) Urine pH (5.0-6.5) Ur Specific [place] (1.010-1.025) Urine Protein (NEGATIVE) mg/dL Urine Glucose (UA) (NORMAL) mg/dL Urine Ketones (NEGATIVE) mg/dL Urine Occult Blood (NEGATIVE) Urine Nitrite (NEGATIVE) Urine Bilirubin (NEGATIVE) Urine Urobilinogen (NEGATIVE) mg/dL Ur Leukocyte Esterase (NEGATIVE) Urine RBC (0-5) Urine WBC (0-5) Ur Squamous Epith Cells (NS,R,O) Urine Bacteria (NS) Urine Mucus (NS) 10/19/20 10/19/20 Range/Units 14:12 15:45 WBC (3.0-10.3) x10-3/uL RBC (3.60-5.20) x10(6)uL Hgb (11.4-15.5) g/dL Hct (34.2-48.2) % MCV (76.7-100.5) fL MCH (23.9-33.9) pg MCHC (31.9-34.8) g/dL RDW (12.3-16.5) % Plt Count (151-488) x10(3)uL MPV (7.1-12.4) fL Add Manual Diff Neutrophils % (Manual) (46-82) % Lymphocytes % (Manual) (13-37) % Monocytes % (Manual) (4-12) % Anisocytosis Sodium (135-145) mmol/L Potassium (3.5-5.3) mmol/L Chloride (100-110) mmol/L Carbon Dioxide (21-32) mmol/L BUN (7-18) mg/dL Creatinine (0.55-1.02) mg/dL Est Cr Clr Drug Dosing mL/min Estimated GFR (MDRD) (>60) BUN/Creatinine Ratio (9-20) Glucose (80-116) mg/dL Lactic Acid 0.7 (0.4-2.0) mmol/L Calcium (8.6-10.2) mg/dL Total Bilirubin (0.1-1.3) mg/dL AST (5-25) IU/L ALT (12-36) U/L Alkaline Phosphatase (56-112) IU/L Total Protein (6.0-8.0) g/dL Albumin (3.2-4.6) g/dL Globulin g/dL Albumin/Globulin Ratio Amylase (25-115) U/L Lipase (73-393) U/L Urine Color Yellow (YELLOW) Urine Appearance Slightly cloudy (CLEAR) Urine pH 6.0 (5.0-6.5) Ur Specific [place] 1.010 (1.010-1.025) Urine Protein Negative (NEGATIVE) mg/dL Urine Glucose (UA) Normal (NORMAL) mg/dL Urine Ketones Negative (NEGATIVE) mg/dL Urine Occult Blood Trace (NEGATIVE) Urine Nitrite Negative (NEGATIVE) Urine Bilirubin Negative (NEGATIVE) Urine Urobilinogen Normal (NEGATIVE) mg/dL Ur Leukocyte Esterase Negative (NEGATIVE) Urine RBC 0-5 (0-5) Urine WBC 0-5 (0-5) Ur Squamous Epith Cells Few H (NS,R,O) Urine Bacteria Rare H (NS) Urine Mucus Few H (NS) Meds: Medications Discontinued Medications Generic Name Dose Route Start Last Admin Trade Name Freq PRN Reason Stop Dose Admin Hydrocodone Bitart/Acetaminophen 1 tab 10/19/20 16:30 10/19/20 22:11 Acetaminophen/Hydrocodone 325-5 Mg Tab PO 1 tab Q4H PRN Administration Pain (moderate 4-6) Allopurinol 300 mg 10/20/20 09:00 Allopurinol 300 Mg Tab PO DAILY FENG Enoxaparin Sodium 40 mg 10/19/20 16:30 10/19/20 18:54 Enoxaparin 40 Mg/0.4 Ml Syringe SUBCUT 40 mg Q24H FENG Administration Escitalopram Oxalate 10 mg 10/20/20 09:00 Escitalopram 10 Mg Tab PO DAILY FENG Furosemide 20 mg 10/19/20 16:30 10/20/20 01:05 Furosemide 20 Mg/2 Ml Vial IVPUSH 10/19/20 16:31 Not Given ONETIME ONE Furosemide 20 mg 10/20/20 01:00 10/20/20 01:05 Furosemide 20 Mg/2 Ml Vial IVPUSH 10/20/20 01:01 20 mg ONETIME ONE Administration Sodium Chloride 1,000 mls @ 999 mls/hr 10/19/20 13:30 10/19/20 13:54 Normal Saline IV 999 mls/hr ASDIRECTED FENG Administration Sodium Chloride 250 mls @ 100 mls/hr 10/19/20 16:30 10/20/20 01:35 Normal Saline IV 100 mls/hr ASDIRECTED FENG Administration Iopamidol 75 ml 10/19/20 14:21 10/19/20 14:42 Iopamidol 755 Mg/Ml 75 Ml Bottle IV 10/19/20 14:22 75 ml ASDIRECTED ONE Administration Morphine Sulfate 2 mg 10/19/20 13:45 10/19/20 13:54 Morphine 2 Mg/Ml Syringe IVPUSH 10/19/20 13:46 2 mg NOW STA Administration Non-Formulary Medication 40 mg 10/20/20 09:00 Omeprazole [Omeprazole] PO DAILY [facility] Non-Formulary Medication 90 mg 10/20/20 09:00 Nifedipine [Procardia Xl] PO DAILY [facility] Non-Formulary Medication 5 mg 10/19/20 21:00 Melatonin [Melatonin] PO BEDTIME FENG Ondansetron HCl 4 mg 10/19/20 14:30 10/19/20 14:34 Ondansetron 4 Mg/2 Ml Sdv IVPUSH 10/19/20 14:31 4 mg NOW STA Administration Ondansetron HCl 4 mg 10/19/20 16:30 10/20/20 04:55 Ondansetron 4 Mg/2 Ml Sdv IV 4 mg Q4H PRN Administration Nausea/Vomiting Polyethylene Glycol 17 gm 10/20/20 09:00 Polyethylene Glycol 3350 Powder 17 Gm Packet PO DAILY [facility] Potassium Chloride 40 meq 10/19/20 14:47 10/19/20 15:17 Potassium Chloride 20 Meq Tab.Er PO 10/19/20 14:48 40 meq NOW STA Administration Prochlorperazine Maleate 10 mg 10/19/20 16:46 Prochlorperazine 10 Mg Tab PO QID PRN Nausea Sodium Chloride 10 ml 10/19/20 13:13 10/20/20 04:55 Sodium Chloride 0.9% 10 Ml Syringe FLUSH 10 ml ASDIRECTED PRN Administration Keep Vein Open Sodium Chloride 999 ml 10/19/20 13:15 Sodium Chloride 0.9% 10 Ml Sdv IV 10/19/20 13:16 ONETIME ONE Trimethoprim/Sulfamethoxazole 0.5 tab 10/20/20 09:00 Sulfamethoxazole/Trimethoprim 800-160 Mg Tab PO MoWeFr@0900 FENG Trimethoprim/Sulfamethoxazole 0.5 tab 10/20/20 21:00 Sulfamethoxazole/Trimethoprim 800-160 Mg Tab PO MoWeFr@2100 FENG Valacyclovir HCl 500 mg 10/20/20 09:00 Valacyclovir 500 Mg Tab PO DAILY FENG Departure - Departure Time of Disposition: 15:00 Disposition: Refer to Observation Condition: Good Clinical Impression: Lymphoma, Pancytopenia, Hypokalemia - Discharge Information Sepsis Event Note (ED) - Evaluation Sepsis Screening Result: No Definite Risk
[2020-10-19] MEDS: Sodium Chloride 0.9% 250 ML IV SCH ×2 (18:49→21:50)
[2020-10-19] MEDS ORDERED: Non-Formulary Medication 1 Each (Melatonin [Melatonin] 5 MG Tablet) PO SCH (21:00)
[2020-10-20] MEDS ORDERED: Furosemide 20 MG/2 ML VIAL IVPUSH ONE (01:00)
[2020-10-20] MEDS: Furosemide 20 MG/2 ML VIAL IVPUSH ONE ×2 (01:05)
[2020-10-20] MEDS: Sodium Chloride 0.9% 250 ML IV SCH (01:35)
[2020-10-20] MEDS: Sodium Chloride 0.9% 10 ML Syringe FLUSH PRN ×2 (04:28→04:55)
--- NOTE | 2020-10-20 08:36 | PCM.HP.2 ---
H&P History of Present Illness - General Date of Service: 10/20/20 Admit Problem/Dx: Admission Diagnosis/Problem Admission Diagnosis/Problem Abdominal pain Source of Information: Patient, Old Records History Limitations: Reports: No Limitations - History of Present Illness Initial Comments - Free Text/Narative: Merry is a 65-year-old female admitted last night for transfusion of blood. She presented to the emergency department with abdominal pain, a CT done was negative for any blood clots. 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 Upon testing yesterday she was found to have pancytopenia with severe neutropenia. She was admitted on the advice of oncology, for 3 PRBCs and subsequently to be discharged. This morning she feels much better, she is pain-free and denies any fatigue, nausea vomiting chest pain or shortness of breath. Epigastric Pain Score (Numeric/FACES): 3 Lower Back Pain Score (Numeric/FACES): 3 - Related Data Allergies/Adverse Reactions: Allergies Allergy/AdvReac Type Severity Reaction Status Date / Time cephalexin Allergy Rash Verified 10/19/20 18:11 Home Medications: Home Meds Escitalopram [Lexapro] 10 mg PO DAILY 09/28/20 [History] Melatonin 5 mg PO BEDTIME PRN 09/28/20 [History] Omeprazole 40 mg PO DAILY 09/28/20 [History] Rivaroxaban [Xarelto] 20 mg PO DAILY 09/28/20 [History] polyethylene glycoL 3350 [MiraLAX] 17 gm PO DAILY packet 10/09/20 [Rx] Past Medical History HEENT History: Reports: Other (See Below) Other HEENT History: Reading glasses Cardiovascular History: Reports: Arrhythmia, Blood Clots/VTE/DVT Gastrointestinal History: Reports: GERD Genitourinary History: Reports: None [employer] History: Reports: Other OB/BYN History: Psychiatric History: Reports: Anxiety, Depression Endocrine/Metabolic History: Reports: Obesity/BMI 30+ Hematologic History: Reports: Anemia, Blood Transfusion(s), Other (See Below) Other Hematologic History: malignant lymphoma Oncologic (Cancer) History: Reports: Lymphoma - Infectious Disease History Infectious Disease History: Reports: Chicken Pox - Past Surgical History Head Surgeries/Procedures: Reports: None HEENT Surgical History: Reports: None GI Surgical History: Reports: EGD Female Surgical History: Reports: Section Other Female Surgeries/Procedures: CS x 3 Social & Family History - Family History Family Medical History: No Pertinent Family History - Tobacco Use Tobacco Use Status *Q: Current Every Day Tobacco User Years of Tobacco use: 43 Packs/Tins Daily: 0.5 - Caffeine Use Caffeine Use: Reports: Coffee - Recreational Drug Use Recreational Drug Use: No H&P Review of Systems - Review of Systems: Review Of Systems: Comprehensive ROS is negative, except as noted in HPI. Exam - Exam Exam: See Below - Vital Signs Vital Signs: Last Vital Signs Temp 97.3 F 10/20/20 07:00 Pulse 67 10/20/20 07:00 Resp 20 10/20/20 07:00 BP 148/66 H 10/20/20 07:00 Pulse Ox 95 10/20/20 07:00 Weight: 74.389 kg - Exam General: Alert, Oriented, 4 HEENT: PERRLA, Hearing Intact, Mucosa Moist & [place], Nares Patent, Normal Nasal Septum, Posterior Pharynx Clear, Conjunctiva Clear, EOMI, EACs Clear, TMs Clear Neck: Supple, Trachea Midline, 2 Lungs: Clear to Auscultation, Normal Respiratory Effort Cardiovascular: Regular Rate, Regular Rhythm GI/Abdominal Exam: Normal Bowel Sounds, Soft, Non-Tender, No Organomegaly, No Distention, No Abnormal Bruit, No Mass, Pelvis Stable (Female) Exam: Normal External Exam, Normal Speculum Exam, Normal Bimanual Exam Rectal (Female) Exam: Normal Exam, Normal Rectal Tone Back Exam: Normal Inspection, Full Range of Motion, NT Extremities: Normal Inspection, Normal Range of Motion, Non-Tender, No Pedal Edema, Normal Capillary Refill Skin: Warm, Dry, Intact Neurological: Cranial Nerves Intact, Reflexes Equal Bilateral Neuro Extensive - Mental Status: Alert, Oriented x3, Normal Mood/Affect, Normal Cognition Neuro Extensive - Motor, Sensory, Reflexes: CN II-XII Intact, Normal Gait, Normal Reflexes Psychiatric: Alert, Normal Affect, Normal Mood - Patient Data Lab Results Last 24 hrs: Laboratory Results - last 24 hr 10/19/20 10/19/20 10/19/20 Range/Units 13:55 13:55 13:55 WBC 1.0 L* (3.0-10.3) x10-3/uL RBC 1.74 L (3.60-5.20) x10(6)uL Hgb 5.7 L* (11.4-15.5) g/dL Hct 15.8 L* (34.2-48.2) % MCV 91.0 (76.7-100.5) fL MCH 32.6 (23.9-33.9) pg MCHC 35.8 H (31.9-34.8) g/dL RDW 15.6 (12.3-16.5) % Plt Count 33 L* (151-488) x10(3)uL MPV 7.9 (7.1-12.4) fL Add Manual Diff Yes Neutrophils % (Manual) 56 (46-82) % Lymphocytes % (Manual) 43 H (13-37) % Monocytes % (Manual) 1 L (4-12) % Anisocytosis Few Sodium 138 (135-145) mmol/L Potassium 3.4 L (3.5-5.3) mmol/L Chloride 103 (100-110) mmol/L Carbon Dioxide 25 (21-32) mmol/L BUN 14 (7-18) mg/dL Creatinine 0.6 (0.55-1.02) mg/dL Est Cr Clr Drug Dosing 70.54 mL/min Estimated GFR (MDRD) > 60 (>60) BUN/Creatinine Ratio 23.3 H (9-20) Glucose 98 (80-116) mg/dL Lactic Acid (0.4-2.0) mmol/L Calcium 8.6 (8.6-10.2) mg/dL Total Bilirubin 0.9 (0.1-1.3) mg/dL AST 10 D (5-25) IU/L ALT 15 (12-36) U/L Alkaline Phosphatase 74 (56-112) IU/L Total Protein 6.9 (6.0-8.0) g/dL Albumin 2.8 L (3.2-4.6) g/dL Globulin 4.1 g/dL Albumin/Globulin Ratio 0.7 Amylase 62 (25-115) U/L Lipase 77 (73-393) U/L Urine Color (YELLOW) Urine Appearance (CLEAR) Urine pH (5.0-6.5) Ur Specific [place] (1.010-1.025) Urine Protein (NEGATIVE) mg/dL Urine Glucose (UA) (NORMAL) mg/dL Urine Ketones (NEGATIVE) mg/dL Urine Occult Blood (NEGATIVE) Urine Nitrite (NEGATIVE) Urine Bilirubin (NEGATIVE) Urine Urobilinogen (NEGATIVE) mg/dL Ur Leukocyte Esterase (NEGATIVE) Urine RBC (0-5) Urine WBC (0-5) Ur Squamous Epith Cells (NS,R,O) Urine Bacteria (NS) Urine Mucus (NS) Blood Type Gel Antibody Screen Crossmatch 10/19/20 10/19/20 10/19/20 Range/Units 14:12 15:45 16:45 WBC (3.0-10.3) x10-3/uL RBC (3.60-5.20) x10(6)uL Hgb (11.4-15.5) g/dL Hct (34.2-48.2) % MCV (76.7-100.5) fL MCH (23.9-33.9) pg MCHC (31.9-34.8) g/dL RDW (12.3-16.5) % Plt Count (151-488) x10(3)uL MPV (7.1-12.4) fL Add Manual Diff Neutrophils % (Manual) (46-82) % Lymphocytes % (Manual) (13-37) % Monocytes % (Manual) (4-12) % Anisocytosis Sodium (135-145) mmol/L Potassium (3.5-5.3) mmol/L Chloride (100-110) mmol/L Carbon Dioxide (21-32) mmol/L BUN (7-18) mg/dL Creatinine (0.55-1.02) mg/dL Est Cr Clr Drug Dosing mL/min Estimated GFR (MDRD) (>60) BUN/Creatinine Ratio (9-20) Glucose (80-116) mg/dL Lactic Acid 0.7 (0.4-2.0) mmol/L Calcium (8.6-10.2) mg/dL Total Bilirubin (0.1-1.3) mg/dL AST (5-25) IU/L ALT (12-36) U/L Alkaline Phosphatase (56-112) IU/L Total Protein (6.0-8.0) g/dL Albumin (3.2-4.6) g/dL Globulin g/dL Albumin/Globulin Ratio Amylase (25-115) U/L Lipase (73-393) U/L Urine Color Yellow (YELLOW) Urine Appearance Slightly cloudy (CLEAR) Urine pH 6.0 (5.0-6.5) Ur Specific [place] 1.010 (1.010-1.025) Urine Protein Negative (NEGATIVE) mg/dL Urine Glucose (UA) Normal (NORMAL) mg/dL Urine Ketones Negative (NEGATIVE) mg/dL Urine Occult Blood Trace (NEGATIVE) Urine Nitrite Negative (NEGATIVE) Urine Bilirubin Negative (NEGATIVE) Urine Urobilinogen Normal (NEGATIVE) mg/dL Ur Leukocyte Esterase Negative (NEGATIVE) Urine RBC 0-5 (0-5) Urine WBC 0-5 (0-5) Ur Squamous Epith Cells Few H (NS,R,O) Urine Bacteria Rare H (NS) Urine Mucus Few H (NS) Blood Type AB POSITIVE Gel Antibody Screen Negative Crossmatch See Detail Result Diagrams: 10/19/20 13:55 10/19/20 13:55 Sepsis Event Note - Evaluation Sepsis Screening Result: No Definite Risk - Focused Exam Vital Signs: Vital Signs Temp Temp Pulse Resp BP Pulse Ox 10/20/20 07:00 97.3 F 67 20 148/66 H 95 10/20/20 05:30 97.2 F 71 20 150/71 H 10/20/20 04:30 97.2 F 66 20 166/76 H 10/20/20 04:00 98.1 F 68 20 166/76 H 97 10/20/20 01:35 97.5 F 68 20 126/58 L 10/20/20 01:20 97.9 F 74 20 136/61 10/20/20 00:30 98.1 F 77 20 133/64 10/20/20 00:00 98.2 F 72 20 126/58 L 96 10/19/20 22:01 97.2 F 75 16 120/56 L 10/19/20 21:46 98.1 F 75 16 126/55 L 10/19/20 21:20 98.9 F 77 16 115/74 - Problem List (1) Malignant lymphoplasmacytic lymphoma SNOMED Code(s): 654962760 ICD Code: C83.00 - SMALL CELL B-CELL LYMPHOMA, UNSPECIFIED SITE Status: Acute Current Visit: No (2) Pancytopenia SNOMED Code(s): 812377815 ICD Code: D61.818 - OTHER PANCYTOPENIA Status: Acute Current Visit: No (3) HTN (hypertension) SNOMED Code(s): 47590687 ICD Code: I10 - ESSENTIAL (PRIMARY) HYPERTENSION Status: Acute Current Visit: Yes Qualifiers: Hypertension type: primary hypertension Qualified Code(s): I10 - Essential (primary) hypertension (4) H/O deep venous thrombosis SNOMED Code(s): 448411967 ICD Code: Z86.718 - PERSONAL HISTORY OF OTHER VENOUS THROMBOSIS AND EMBOLISM Status: Acute Current Visit: Yes Problem List Initiated/Reviewed/Updated: Yes Orders Last 24hrs: Active Orders 24 hr Category Date Time Status Patient Status [ADT] Routine ADT 10/19/20 16:30 Active Intake and Output [RC] QSHIFT Care 10/19/20 16:33 Active Oxygen Therapy [RC] PRN Care 10/19/20 16:30 Active Pulse Oximetry [RC] PRN Care 10/19/20 16:33 Active Up With Assistance [RC] ASDIRECTED Care 10/19/20 16:30 Active Vital Signs [RC] Q4H Care 10/19/20 16:30 Active Regular Diet [DIET] Diet 10/19/20 Dinner Ordered Abdomen Pelvis w Cont [CT] Stat Exams 10/19/20 13:46 Taken BASIC METABOLIC PANEL,BMP [CHEM] AM Lab 10/20/20 05:11 Ordered CBC WITH AUTO DIFF [HEME] AM Lab 10/20/20 05:11 Ordered Acetaminophen/HYDROcodone [[place] 325-5 MG] Med 10/19/20 16:30 Active 1 tab PO Q4H PRN Enoxaparin [Lovenox] Med 10/19/20 16:30 Active 40 mg SUBCUT Q24H Escitalopram [Lexapro] Med 10/20/20 09:00 Pending 10 mg PO DAILY Melatonin [Melatonin] Med 10/19/20 21:00 Pending 5 mg PO BEDTIME NIFEdipine [Procardia Xl] Med 10/20/20 09:00 Pending 90 mg PO DAILY Omeprazole [Omeprazole] Med 10/20/20 09:00 Pending 40 mg PO DAILY Ondansetron [Zofran] Med 10/19/20 16:30 Active 4 mg IV Q4H PRN Prochlorperazine [Compazine] Med 10/19/20 16:46 Pending 10 mg PO QID PRN Sodium Chloride 0.9% [Normal Saline] 1,000 ml Med 10/19/20 13:30 Active IV ASDIRECTED Sodium Chloride 0.9% [Normal Saline] 250 ml Med 10/19/20 16:30 Active IV ASDIRECTED Sodium Chloride 0.9% [Saline Flush] Med 10/19/20 13:13 Active 10 ml FLUSH ASDIRECTED PRN Sulfamethoxazole/Trimethoprim [Septra DS] Med 10/20/20 09:00 Pending 0.5 tab PO MoWeFr@0900 Sulfamethoxazole/Trimethoprim [Septra DS] Med 10/20/20 21:00 Pending 0.5 tab PO MoWeFr@2100 allopurinoL [Zyloprim] Med 10/20/20 09:00 Pending 300 mg PO DAILY polyethylene glycoL 3350 [MiraLAX] Med 10/20/20 09:00 Pending 17 gm PO DAILY valACYclovir [Valtrex] Med 10/20/20 09:00 Pending 500 mg PO DAILY Saline Lock Insert [OM.PC] Routine Oth 10/19/20 13:13 Ordered Sequential Compression Device [OM.PC] Per Unit Routine Oth 10/19/20 16:33 Ordered Transfuse Red Blood Cells [COMM] Routine Oth 10/19/20 16:30 Ordered Resuscitation Status Routine Resus Stat 10/19/20 16:30 Ordered Medication Orders Hydrocodone Bitart/Acetaminophen (Acetaminophen/Hydrocodone 325-5 Mg Tab) 1 tab PO Q4H PRN PRN Reason: Pain (moderate 4-6) Last Admin: 10/19/20 22:11 Dose: 1 tab Documented by: NELSON Allopurinol (Allopurinol 300 Mg Tab) 300 mg PO DAILY [facility] Enoxaparin Sodium (Enoxaparin 40 Mg/0.4 Ml Syringe) 40 mg SUBCUT Q24H [facility] Last Admin: 10/19/20 18:54 Dose: 40 mg Documented by: MERLE Escitalopram Oxalate (Escitalopram 10 Mg Tab) 10 mg PO DAILY [facility] Sodium Chloride (Normal Saline) 1,000 mls @ 999 mls/hr IV ASDIRECTED [facility] Last Admin: 10/19/20 13:54 Dose: 999 mls/hr Documented by: APOORVA Sodium Chloride (Normal Saline) 250 mls @ 100 mls/hr IV ASDIRECTED [facility] Last Admin: 10/20/20 01:35 Dose: 100 mls/hr Documented by: Admin: 10/19/20 21:50 Dose: 100 mls/hr Documented by: Admin: 10/19/20 18:49 Dose: 100 mls/hr Documented by: MERLE Non-Formulary Medication (Omeprazole [Omeprazole]) 40 mg PO DAILY [facility] Non-Formulary Medication (Nifedipine [Procardia Xl]) 90 mg PO DAILY [facility] Non-Formulary Medication (Melatonin [Melatonin]) 5 mg PO BEDTIME [facility] Ondansetron HCl (Ondansetron 4 Mg/2 Ml Sdv) 4 mg IV Q4H PRN PRN Reason: Nausea/Vomiting Last Admin: 10/20/20 04:55 Dose: 4 mg Documented by: NELSON Polyethylene Glycol (Polyethylene Glycol 3350 Powder 17 Gm Packet) 17 gm PO DAILY [facility] Prochlorperazine Maleate (Prochlorperazine 10 Mg Tab) 10 mg PO QID PRN PRN Reason: Nausea Sodium Chloride (Sodium Chloride 0.9% 10 Ml Syringe) 10 ml FLUSH ASDIRECTED PRN PRN Reason: Keep Vein Open Last Admin: 10/20/20 04:55 Dose: 10 ml Documented by: Admin: 10/20/20 04:28 Dose: 10 ml Documented by: Admin: 10/19/20 13:22 Dose: 10 ml Documented by: APOORVA Trimethoprim/Sulfamethoxazole (Sulfamethoxazole/Trimethoprim 800-160 Mg Tab) 0.5 tab PO [email or web address] [facility] Trimethoprim/Sulfamethoxazole (Sulfamethoxazole/Trimethoprim 800-160 Mg Tab) 0.5 tab PO [email or web address]@2100 [facility] Valacyclovir HCl (Valacyclovir 500 Mg Tab) 500 mg PO DAILY [facility] Assessment/Plan Comment:: She feels much better today. I will discharge her home. Lab was unable to control because she is a difficult stick. Blood pressure improved. She has an appointment to follow-up with oncology at [place].
[2020-10-20] MEDS ORDERED: valACYclovir 500 MG Tab PO SCH (09:00)
[2020-10-20] MEDS ORDERED: Escitalopram 10 MG Tab PO SCH (09:00)
[2020-10-20] MEDS ORDERED: Polyethylene Glycol 3350 Powder 17 GM Packet PO SCH (09:00)
[2020-10-20] MEDS ORDERED: Allopurinol 300 MG Tab PO SCH (09:00)
[2020-10-20] MEDS ORDERED: NIFEDIPINE 90 MG PO SCH (09:00)
[2020-10-20] MEDS ORDERED: Sulfamethoxazole/Trimethoprim 800-160 MG Tab PO SCH ×2 (09:00→21:00)
== END 2020-10-20 10:05 | disposition home or self-care (01) ==
LOC: FB.ED 12:58 → FB.MS 16:30
PROVIDERS: ADMIT Family Medicine; ATTEND Family Medicine
DX: C83.00 Small cell B-cell lymphoma, unspecified site (principal); D61.818 Other pancytopenia; E87.6 Hypokalemia; I10 Essential (primary) hypertension; Z86.718 Personal history of other venous thrombosis and embolism; Z88.1 Allergy status to other antibiotic agents; Z79.899 Other long term (current) drug therapy; F17.210 Nicotine dependence, cigarettes, uncomplicated
CPT/HCPCS: 36415; 36430; 74177; 80053; 81001; 82150; 83605; 83690; 85025; 86850; 86900; 86901; 86920; 86922; 96374; 96375; 99285; A9270; J1650; J1940; J2270; J2405; J7030; J7050; P9016; Q9967; 96372; 96376; G0378